=== PATIENT | female | born 1985 | race Hispanic/Latino ===

== ENCOUNTER 2018-02-27 12:54 | Emergency (ER) | payer OTHER ==
[~2018-02-27] VITALS: Ht 154.9 cm; Wt 51.4 kg
[~2018-02-27 12:54] MED LIST: AMOXICILLIN875 MG PO; BENADRYL 50MG C50 MG PO; COLACE100 MG PO; CONCEPT OB PO; FLUZONE SPLT1 M1 IM; INTEGRA F PO; LORTAB 10 PO; LORTAB 7.57.5 MG PO; NO; ONDANSETRON ODT8 MG PO; PHENERGAN25 MG/TAB PO; TUBERSOL5 MG/0.1 M ID; TYLENOL # 31 TA1 PO; ZOFRAN ODT8 MG PO
[2018-02-27] MEDS ORDERED: PHENTERMINE H37.5 M1 PO (13:34)
[2018-02-27] MEDS ORDERED: MOTRIN400 MG PO (14:38)
[2018-02-27] MEDS ORDERED: FLEXERIL5 M1 PO (14:38)
[2018-02-27 14:40] VITALS: BP 117/84
== END 2018-02-27 14:40 | disposition home or self-care (01) | DRG 552 ==
LOC: ED 12:54
DX: S16.1XXA Strain of muscle, fascia and tendon at neck level, initial encounter (principal); S39.012A Strain of muscle, fascia and tendon of lower back, initial encounter; V89.2XXA Person injured in unspecified motor-vehicle accident, traffic, initial encounter

== ENCOUNTER 2019-01-24 22:28 | Emergency (ER) | payer SELFPAY ==
[~2019-01-24] VITALS: Ht 152.4 cm; Wt 50.0 kg
[~2019-01-24 22:28] MED LIST changes: +FLEXERIL5 M1 PO; +MOTRIN400 MG PO; +PHENTERMINE H37.5 M1 PO
[2019-01-25] MEDS ORDERED: LORTAB 1010 MG PO (02:35)
[2019-01-25] MEDS ORDERED: BACTRIM DS1 TAB PO (02:35)
[2019-01-25] MEDS ORDERED: CEPHALEXIN500 M1 PO (02:35)
[2019-01-25 02:49] VITALS: BP 134/84
== END 2019-01-25 02:49 | disposition home or self-care (01) | DRG 603 ==
LOC: ED 22:28
PROC: 0H9KXZZ Drainage of Right Lower Leg Skin, External Approach (ICD-10-PCS; principal; 2019-01-25)
DX: L03.115 Cellulitis of right lower limb (principal)

== ENCOUNTER 2019-03-31 17:29 | Emergency (ER) | payer SELFPAY ==
[~2019-03-31] VITALS: Ht 152.4 cm; Wt 48.2 kg
[~2019-03-31 17:29] MED LIST changes: +BACTRIM DS1 TAB PO; +CEPHALEXIN500 M1 PO; +LORTAB 1010 MG PO
[2019-03-31] MEDS ORDERED: TAM75CAP PO (18:44)
[2019-03-31] MEDS ORDERED: KEFLEX500 MG PO (18:44)
[2019-03-31] MEDS ORDERED: TESSALON PER100 MG PO (18:54)
[2019-03-31 18:55] VITALS: BP 138/82
== END 2019-03-31 18:55 | disposition home or self-care (01) | DRG 195 ==
LOC: ED 17:29
DX: J09.X2 Influenza due to identified novel influenza A virus with other respiratory manifestations (principal); Z20.818 Contact with and (suspected) exposure to other bacterial communicable diseases

== ENCOUNTER 2019-10-05 21:57 | Emergency (ER) | payer SELFPAY ==
[~2019-10-05 21:57] MED LIST changes: +KEFLEX500 MG PO; +TAM75CAP PO; +TESSALON PER100 MG PO
[2019-10-05 23:00] VITALS: BP 135/76
== END 2019-10-05 23:00 | disposition home or self-care (01) | DRG 605 ==
LOC: ED 21:57
DX: S80.212A Abrasion, left knee, initial encounter (principal); S80.211A Abrasion, right knee, initial encounter; W01.0XXA Fall on same level from slipping, tripping and stumbling without subsequent striking against object, initial encounter; Y92.008 Other place in unspecified non-institutional (private) residence as the place of occurrence of the external cause